=== PATIENT | male | born 1950 | race Caucasian/White ===

== ENCOUNTER → 2018-03-27 14:06 | Outpatient (CLI) | payer MEDICARE, BC, SELFPAY ==
--- NOTE | 2018-03-27 14:09 | DI.RAD.S_ITS ---
PROCEDURE: XR FOREARM RT 2V INDICATIONS: pain of R forearm after fall TECHNIQUE: 2 views of the forearm were acquired. COMPARISON: [facility], CR, HAND MIN 3VW (RT), 06/02/2011, 9:33. FINDINGS: Bones: No fractures or dislocations. No suspicious bony lesions. Soft tissues: No suspicious soft tissue calcifications or masses. IMPRESSION: No fracture or dislocation. The If clinical symptoms persist or clinical suspicion for pathology is high, a repeat examination in 7-10 days is suggested for further evaluation. Dictated by: Teresita Way M.D. on 03/27/2018 at 15:59 Approved by: Teresita Way M.D. on 03/27/2018 at 16:04
== END ==
PROVIDERS: PCP Family Medicine; Visit Provider Family Medicine
DX: M79.631 Pain in right forearm (principal)
CPT/HCPCS: 73090

== ENCOUNTER 2018-04-17 19:46 | Emergency (ER) | payer MEDICARE, BC, SELFPAY ==
[2018-04-17 20:09] VITALS: BP 157/96; PULSE 81; RESP 18; TEMP 36.4; O2SAT 95; BMI 31.9
--- NOTE | 2018-04-17 20:52 | ED.RECABL ---
HPI - Recheck/Abnormal Lab/Rx <Lauren Stewart PA-C - Last Filed: 04/17/18 23:23> General Chief Complaint: Recheck/Abnormal Lab/Rx Stated Complaint: needs refills on medication Time Seen by Provider: 04/17/18 21:18 Source: patient Mode of arrival: ambulatory Limitations: no limitations History of Present Illness HPI narrative: This 68-year-old male comes in requesting medication refills. He used to live here, moved back in December and was hoping to reestablish with his previous PCP but found out after about 2 months he is not taking more patients. He is waiting for records to be transferred from [place] so he can get in with another clinic. He states he is almost out of his pravastatin and out of his Ativan. Those are the only 2 medications that he takes regularly. He takes Ativan at bedtime only because he gets claustrophobic with his CPAP machine. He has tried sleeping without the CPAP but states he does not get good sleep without it. He states he is feeling okay and does not have any new complaints, just would like medication while waiting to get in with a PCP locally Related Data Home Medications Medication Instructions Recorded Confirmed fluticasone 50 mcg/actuation nasal 1 spray NASAL DAILY 03/27/18 03/27/18 spray,suspension lorazepam 1 mg tablet 1 mg PO BEDTIME PRN 03/27/18 03/27/18 pravastatin 20 mg tablet 20 mg PO DAILY 03/27/18 03/27/18 vardenafil 20 mg tablet 20 mg PO DAILY PRN 03/27/18 03/27/18 Previous Rx's Medication Instructions Recorded lorazepam 1 mg PO BEDTIME #14 tab 04/17/18 pravastatin 20 mg PO DAILY #30 tab 04/17/18 Allergies Allergy/AdvReac Type Severity Reaction Status Date / Time No Known Drug Allergies Allergy Verified 04/17/18 20:08 Review of Systems <Lauren Stewart PA-C - Last Filed: 04/17/18 23:23> Review of Systems All systems reviewed & are unremarkable except as noted in HPI and below Exam <Lauren Stewart PA-C - Last Filed: 04/17/18 23:23> Narrative Exam Narrative: GENERAL APPEARANCE: Patient sitting comfortably, in no distress. LUNGS: Clear to auscultation bilaterally. HEART: Rate and rhythm regular without murmur, normal S1 and S2, no S3 or S4. Initial Vital Signs Initial Vital Signs: Vital Signs Temperature 97.6 F 04/17/18 20:09 Pulse Rate 81 04/17/18 20:09 Respiratory Rate 18 04/17/18 20:09 Blood Pressure 157/96 H 04/17/18 20:09 Pulse Oximetry 95 04/17/18 20:09 <Robin Best DO - Last Filed: 04/18/18 03:45> Initial Vital Signs Initial Vital Signs: Vital Signs Temperature 97.6 F 04/17/18 20:09 Pulse Rate 81 04/17/18 20:09 Respiratory Rate 18 04/17/18 20:09 Blood Pressure 157/96 H 04/17/18 20:09 Pulse Oximetry 95 04/17/18 20:09 Course <Lauren Stewart PA-C - Last Filed: 04/17/18 23:23> Additional Information: Patient is not having any acute symptoms. He is a reasonable historian, just having difficulty getting established with a local PCP for medication refills. I spoke with office mail clerk at [facility] this evening and he will call there tomorrow regarding scheduling and can do televisit as well for medication refills if needed. Given rxs to last until he is able to schedule. Vital Signs - 8 hr 04/17/18 20:09 04/17/18 21:46 Temperature 97.6 F Pulse Rate 81 81 Respiratory Rate 18 17 Blood Pressure 157/96 H Blood Pressure [Left Arm] 157/94 H Pulse Oximetry 95 99 <Robin Best DO - Last Filed: 04/18/18 03:45> Vital Signs - 8 hr 04/17/18 20:09 04/17/18 21:46 Temperature 97.6 F Pulse Rate 81 81 Respiratory Rate 18 17 Blood Pressure 157/96 H Blood Pressure [Left Arm] 157/94 H Pulse Oximetry 95 99 Discharge Plan Departure Patient Disposition: Home Clinical Impression: Encounter for medication refill Discharge Date/Time: 04/17/18 21:49 Interventions: ED Discharge Assessment Last Done: 04/17/18 21:48 Activity Restrictions/Additional Instructions: Please feel free to return to the ED or urgent care if you have any problems while you are waiting to see your new PCP. Please call the [facility] here in town, Dr. Taj Jaime, tomorrow, and let them know that I suggested you call due to the long wait to get into a primary care provider and needing medication refills. They have same-day and telemedicine visits and I think they will be able to see you sooner. Prescriptions: New pravastatin 20 mg tablet 20 mg PO DAILY Qty: 30 RF: 0 lorazepam 1 mg tablet 1 mg PO BEDTIME Qty: 14 RF: 0 No Action pravastatin 20 mg tablet 20 mg PO DAILY RF: 0 lorazepam 1 mg tablet 1 mg PO BEDTIME PRNRF: 0 fluticasone 50 mcg/actuation spray,suspension 1 spray NASAL DAILY RF: 0 vardenafil [Levitra] 20 mg tablet 20 mg PO DAILY PRNRF: 0 Referrals: Taj Jaime MD [Physician] - <Robin Best DO - Last Filed: 04/18/18 03:45> [facility] I was immediately available in the department for consultation. Documentation has been reviewed. I agree with assessment and plan.
--- NOTE | 2018-04-17 21:29 | ED_ITS ---
HPI - Recheck/Abnormal Lab/Rx <Lauren Stewart PA-C - Last Filed: 04/17/18 23:23> General Chief Complaint: Recheck/Abnormal Lab/Rx Stated Complaint: needs refills on medication Time Seen by Provider: 04/17/18 21:18 Source: patient Mode of arrival: ambulatory Limitations: no limitations History of Present Illness HPI narrative: This 68-year-old male comes in requesting medication refills. He used to live here, moved back in December and was hoping to reestablish with his previous PCP but found out after about 2 months he is not taking more patients. He is waiting for records to be transferred from [place] so he can get in with another clinic. He states he is almost out of his pravastatin and out of his Ativan. Those are the only 2 medications that he takes regularly. He takes Ativan at bedtime only because he gets claustrophobic with his CPAP machine. He has tried sleeping without the CPAP but states he does not get good sleep without it. He states he is feeling okay and does not have any new complaints, just would like medication while waiting to get in with a PCP locally Related Data Home Medications Medication Instructions Recorded Confirmed fluticasone 50 mcg/actuation nasal 1 spray NASAL DAILY 03/27/18 03/27/18 spray,suspension lorazepam 1 mg tablet 1 mg PO BEDTIME PRN 03/27/18 03/27/18 pravastatin 20 mg tablet 20 mg PO DAILY 03/27/18 03/27/18 vardenafil 20 mg tablet 20 mg PO DAILY PRN 03/27/18 03/27/18 Previous Rx's Medication Instructions Recorded lorazepam 1 mg PO BEDTIME #14 tab 04/17/18 pravastatin 20 mg PO DAILY #30 tab 04/17/18 Allergies Allergy/AdvReac Type Severity Reaction Status Date / Time No Known Drug Allergies Allergy Verified 04/17/18 20:08 Review of Systems <Lauren Stewart PA-C - Last Filed: 04/17/18 23:23> Review of Systems All systems reviewed & are unremarkable except as noted in HPI and below Exam <Lauren Stewart PA-C - Last Filed: 04/17/18 23:23> Narrative Exam Narrative: GENERAL APPEARANCE: Patient sitting comfortably, in no distress. LUNGS: Clear to auscultation bilaterally. HEART: Rate and rhythm regular without murmur, normal S1 and S2, no S3 or S4. Initial Vital Signs Initial Vital Signs: Vital Signs Temperature 97.6 F 04/17/18 20:09 Pulse Rate 81 04/17/18 20:09 Respiratory Rate 18 04/17/18 20:09 Blood Pressure 157/96 H 04/17/18 20:09 Pulse Oximetry 95 04/17/18 20:09 <Robin Best DO - Last Filed: 04/18/18 03:45> Initial Vital Signs Initial Vital Signs: Vital Signs Temperature 97.6 F 04/17/18 20:09 Pulse Rate 81 04/17/18 20:09 Respiratory Rate 18 04/17/18 20:09 Blood Pressure 157/96 H 04/17/18 20:09 Pulse Oximetry 95 04/17/18 20:09 Course <Lauren Stewart PA-C - Last Filed: 04/17/18 23:23> Additional Information: Patient is not having any acute symptoms. He is a reasonable historian, just having difficulty getting established with a local PCP for medication refills. I spoke with financial aid officer at [facility] this evening and he will call there tomorrow regarding scheduling and can do televisit as well for medication refills if needed. Given rxs to last until he is able to schedule. Vital Signs - 8 hr 04/17/18 20:09 04/17/18 21:46 Temperature 97.6 F Pulse Rate 81 81 Respiratory Rate 18 17 Blood Pressure 157/96 H Blood Pressure [Left Arm] 157/94 H Pulse Oximetry 95 99 <Robin Best DO - Last Filed: 04/18/18 03:45> Vital Signs - 8 hr 04/17/18 20:09 04/17/18 21:46 Temperature 97.6 F Pulse Rate 81 81 Respiratory Rate 18 17 Blood Pressure 157/96 H Blood Pressure [Left Arm] 157/94 H Pulse Oximetry 95 99 Discharge Plan Departure Patient Disposition: Home Clinical Impression: Encounter for medication refill Discharge Date/Time: 04/17/18 21:49 Interventions: ED Discharge Assessment Last Done: 04/17/18 21:48 Activity Restrictions/Additional Instructions: Please feel free to return to the ED or urgent care if you have any problems while you are waiting to see your new PCP. Please call the [facility] here in town, Dr. Taj Jaime, tomorrow, and let them know that I suggested you call due to the long wait to get into a primary care provider and needing medication refills. They have same-day and telemedicine visits and I think they will be able to see you sooner. Prescriptions: New pravastatin 20 mg tablet 20 mg PO DAILY Qty: 30 RF: 0 lorazepam 1 mg tablet 1 mg PO BEDTIME Qty: 14 RF: 0 No Action pravastatin 20 mg tablet 20 mg PO DAILY RF: 0 lorazepam 1 mg tablet 1 mg PO BEDTIME PRNRF: 0 fluticasone 50 mcg/actuation spray,suspension 1 spray NASAL DAILY RF: 0 vardenafil [Levitra] 20 mg tablet 20 mg PO DAILY PRNRF: 0 Referrals: Taj Jaime MD [Physician] - <Robin Best DO - Last Filed: 04/18/18 03:45> [facility] ED [facility]: I was immediately available in the department for consultation. Documentation has been reviewed. I agree with assessment and plan.
[2018-04-17 21:46] VITALS: BP 157/94; PULSE 81; RESP 17; O2SAT 99
== END 2018-04-17 21:49 | disposition home or self-care (01) ==
PROVIDERS: Emergency Provider Internal Medicine; PCP Family Medicine
DX: Z76.0 Encounter for issue of repeat prescription (principal)
CPT/HCPCS: 99281; 99282

== ENCOUNTER 2018-07-24 23:14 | Emergency (ER) | payer MEDICARE, BC, SELFPAY ==
[2018-07-24 23:20] VITALS: BP 178/92; PULSE 78; RESP 15; TEMP 36.7; O2SAT 99; BMI 32.6
--- NOTE | 2018-07-24 23:24 | DI.RAD.S_ITS ---
PROCEDURE: XR CHEST 1V INDICATIONS: chest pain TECHNIQUE: One view of the chest was acquired. COMPARISON: None. FINDINGS: Surgical changes and devices: None. Lungs and pleura: Lungs are clear. No pleural effusions or pneumothorax. Mediastinum: Mediastinal contours appear normal. Heart size is normal. There is a large hiatal hernia. Bones and chest wall: No suspicious bony lesions. Overlying soft tissues appear unremarkable. IMPRESSION: 1. A large hiatal hernia. 2. No acute cardiac pulmonary process. Dictated by: Teresita Way M.D. on 07/25/2018 at 8:29 Approved by: Teresita Way M.D. on 07/25/2018 at 8:30
--- NOTE | 2018-07-24 23:24 | ED.CHESTPAIN ---
HPI - Chest Pain General Chief Complaint: Chest Pain Stated Complaint: right side chest pain Time Seen by Provider: 07/24/18 23:22 Source: patient and family Mode of arrival: ambulatory Limitations: no limitations History of Present Illness HPI narrative: 68M former smoker with history of hyperlipidemia presents with and chief complaint of R chest pain which started at rest earlier today at about noon. He states it actually started in his shoulder and then radiated to his chest. Sometimes he can worsen the pain with motion neck or arm, at other times it seems to have a mind of its own. He denies associated symptoms such as SOB, N/V/D, fever, chills, or diaphoresis. He denies any history of the same. He denies injury or overuse. He had a stress test a few years ago due to palpitations while living in [place], [place] Related Data Home Medications Medication Instructions Recorded Confirmed fluticasone propionate 50 1 spray NASAL DAILY 03/27/18 03/27/18 mcg/actuation nasal spray,suspension lorazepam 1 mg tablet 1 mg PO BEDTIME PRN 03/27/18 03/27/18 pravastatin 20 mg tablet 20 mg PO DAILY 03/27/18 03/27/18 vardenafil 20 mg tablet 20 mg PO DAILY PRN 03/27/18 03/27/18 Previous Rx's Medication Instructions Recorded lorazepam 1 mg PO BEDTIME #14 tab 04/17/18 pravastatin 20 mg PO DAILY #30 tab 04/17/18 Allergies Allergy/AdvReac Type Severity Reaction Status Date / Time No Known Drug Allergies Allergy Verified 07/24/18 23:20 Review of Systems Constitutional Denies chills, Denies fever(s), Denies lethargy and Denies weakness Eyes Denies change in vision, Denies eye discharge, Denies irritation and Denies loss of vision ENT Ears, Nose, Mouth, and Throat: Denies change in voice, Denies neck pain and Denies sore throat Cardiovascular Reports chest pain, Denies irregular heart rhythm, Denies lightheadedness, Denies palpitations, Denies dyspnea, Denies dyspnea on exertion and Denies orthopnea Respiratory Denies cough, Denies dyspnea, Denies dyspnea on exertion and Denies wheezing Gastrointestinal Gastrointestinal: Denies abdominal pain, Denies change in bowel habits, Denies diarrhea, Denies nausea and Denies vomiting Genitourinary Denies hematuria, Denies flank pain, Denies urinary incontinence and Denies urinary urgency Musculoskeletal Reports limited range of motion and Denies neck pain Integumentary/Breasts Denies pruritus, Denies erythema, Denies rash and Denies wounds Neurologic Denies confusion, Denies loss of vision and Denies weakness Psychiatric Denies anxiety, Denies confusion, Denies depression, Denies homicidal ideation and Denies suicidal ideation Endocrine Denies palpitations Hematologic/Lymphatic Denies easy bruising Allergic/Immunologic Denies wheezing [facility] Medical History Chronic hepatitis (Chronic) Elevated glucose (Chronic) GERD (gastroesophageal reflux disease) (Chronic) History of migraine (Chronic) Hyperlipidemia (Chronic) LES (obstructive sleep apnea) (Chronic) Sciatica (Chronic) Social History Smoking Status: Never smoker Social History Smoking Status: Never smoker Exam Narrative Exam Narrative: GENERAL: 68-year-old male is resting, appears to be in a bit of distress, particularly when tilting his head to the right or shrugging his shoulders HEAD: Atraumatic. Normocephalic. No temporal or scalp tenderness. EYES: Pupils equal round and reactive. Extraocular motions intact. No scleral icterus. No injection or drainage. ENT: Nose without bleeding, purulent drainage or septal hematoma. Throat without erythema, tonsillar hypertrophy or exudate. Uvula midline. Airway patent. NECK: Trachea midline. No JVD or lymphadenopathy. Supple, nontender, no meningeal signs. CARDIOVASCULAR: Regular rate and rhythm without murmurs, gallops, or rubs. RESPIRATORY: Clear to auscultation. Breath sounds equal bilaterally. No wheezes, rales, or rhonchi. GASTROINTESTINAL: Abdomen soft, non-tender, nondistended. No hepato-splenomegaly, or palpable masses. No guarding. EXTREMITIES: No clubbing, cyanosis, or edema. No joint tenderness, effusion, or edema noted. BACK: Nontender without deformity or crepitance. No flank tenderness. NEURO: AOx3. SKIN: No rash or erythema. Initial Vital Signs Initial Vital Signs: Vital Signs Temperature 98.1 F 07/24/18 23:20 Pulse Rate 78 07/24/18 23:20 Respiratory Rate 15 07/24/18 23:20 Blood Pressure 178/92 H 07/24/18 23:20 Pulse Oximetry 99 07/24/18 23:20 Course Orders Ordered: ED Orders 07/24/18 23:24 XR chest 1V Stat EKG-12 Lead Stat 07/24/18 23:33 Complete Blood Count AUTO DIFF Stat Comprehensive Metabolic Panel Stat Lipase Stat Troponin & CK Cardiac Panel Stat 07/25/18 00:31 CT angio chest PE protocol Stat Sodium Chloride (Normal Saline 0.9%) 1,000 mls @ 150 mls/hr IV CONT OZZIE Last Infusion: 07/25/18 02:05 Dose: 0 mls/hr Admin: 07/25/18 00:53 Dose: 1,000 mls/hr Discontinued Medications Aspirin (Aspirin Chew) 324 mg PO NOW ONE Stop: 07/24/18 23:25 Last Admin: 07/25/18 00:30 Dose: Not Given Ketorolac Tromethamine (Toradol) 15 mg IV NOW ONE Stop: 07/25/18 02:19 Last Admin: 07/25/18 02:22 Dose: 15 mg Vital Signs - 8 hr 07/24/18 23:20 07/25/18 00:53 Temperature 98.1 F Pulse Rate 78 88 Respiratory Rate 15 16 Blood Pressure 178/92 H Blood Pressure [Left Arm] 153/94 H Pulse Oximetry 99 100 MDM - Chest Pain Lab Data Attestation: I reviewed the patient's lab results. Result diagrams: 07/24/18 23:33 07/24/18 23:33 Lab Results 07/24/18 07/24/18 Range/Units 23:33 23:33 WBC 6.8 (4.5-11.0) X10^3/uL RBC 4.78 (4.5-5.9) X10^6/uL Hgb 15.0 (13.5-17.5) g/dL Hct 44.1 (41-53) % MCV 92.3 (80-100) fL MCH 31.4 (26-34) PG MCHC 34.0 (30-36) % RDW 13.9 (11.6-14.8) % Plt Count 250 (150-400) X10^3/uL Neut % (Auto) 54.5 (50-75) % Lymph % (Auto) 30.3 (25-40) % Coleman % (Auto) 10.7 (3-14) % Eos % (Auto) 3.9 (2-4) % Baso % (Auto) 0.6 (0-2) % Neut # (Auto) 3700 (9823-6105) /uL Lymph # (Auto) 2100 (6385-3829) /uL Coleman # (Auto) 700 (0-900) /uL Eos # (Auto) 300 (0-450) /uL Baso # (Auto) 0 (0-100) /uL Sodium 140 (137-145) mmol/L Potassium 3.9 (3.4-5.1) mmol/L Chloride 106 (98-107) mmol/L Carbon Dioxide 26 (22-32) mmol/L BUN 17 (9-20) mg/dL Creatinine 0.90 (0.66-1.25) mg/dL Estimated GFR > 60.0 (>60) mL/min BUN/Creatinine Ratio 18.9 (6-22) Glucose 122 H (80-110) mg/dL Calcium 9.3 (8.4-10.2) mg/dL Total Bilirubin 0.9 (0.2-1.3) mg/dL AST 33 (17-59) IU/L ALT 55 (21-72) IU/L Alkaline Phosphatase 61 (38-126) U/L Total Creatine Kinase 143 (55-170) U/L CK-MB (CK-2) 1.79 (<2.37) ng/mL CK-MB (CK-2) Rel Index 1.3 L (1.5-5.0) % Troponin I < 0.012 (0.01-0.034) ng/mL Total Protein 7.4 (6.3-8.2) g/dL Albumin 4.6 (3.5-5.0) g/dL Globulin 2.8 (1.7-4.1) g/dL Albumin/Globulin Ratio 1.6 (1.0-2.8) Lipase 49 (23-300) U/L Imaging Data Chest x-ray: Attestation: I personally reviewed and interpreted this imaging study as follows: My impression: No acute process CT scan - chest: Radiologist's impression: With no PE, dissection or aneurysm. Large hiatal hernia ECG Data Attestation: I personally reviewed and interpreted this ECG as follows: Prior ECG tracings: not available for review Interpretation: EKG is normal sinus rhythm rate [80 ] and free of any signs of ischemia or ectopy. No ST segmental elevation or depression. No T wave inversions MDM Narrative Medical decision making narrative: 68-year-old male with hyperlipidemia and borderline diabetes, former smoker presents with right shoulder pain that radiates into his chest. It is made worse with range of motion of the shoulder and tilting his head to the side and on occasion has exacerbations without any precipitation. He denies any significant injury or overuse and requires cardiac evaluation. The radiation of his pain and normal EKG would suggest further evaluation with angiography of the test is warranted to rule out pulmonary embolism or dissection. Patient has normal cardiac enzymes and lack of ominous findings on EKG or imaging. He has a local doctor and intends to follow up. He has been given return precautions of and understands his diagnosis and need for follow-up as evidenced by his ability to verbalize these instructions Discharge Plan Departure Patient Disposition: Home Clinical Impression: Atypical chest pain Instructions: DI for Atypical Chest Pain Activity Restrictions/Additional Instructions: *You have been diagnosed with [ atypical chest pain. cardiac ischemia, pulmonary embolism and other diagnoses considered and thought unlikely ] *What to do: * continue to take medications as directed *Follow up with your primary care provider in 2-3 days, call for an appointment. Let them know you were seen in the Emergency Department and that we ask that you be seen in follow up *Return to ER if you should have any new, worsening or concerning symptoms Prescriptions: No Action pravastatin 20 mg tablet 20 mg PO DAILY RF: 0 lorazepam 1 mg tablet 1 mg PO BEDTIME PRNRF: 0 fluticasone propionate 50 mcg/actuation spray,suspension 1 spray NASAL DAILY RF: 0 vardenafil [Levitra] 20 mg tablet 20 mg PO DAILY PRNRF: 0 pravastatin 20 mg tablet 20 mg PO DAILY Qty: 30 RF: 0 lorazepam 1 mg tablet 1 mg PO BEDTIME Qty: 14 RF: 0 Referrals: Taj Jaime MD [Physician] -
[2018-07-24 23:45] LABS: Add Manual Diff / Slide Review NO; Basophils Absolute Auto 0 /uL (0-100); Basophils Percent Auto 0.6 % (0-2); Eosinophils Absolute Auto 300 /uL (0-450); Eosinophils Percent Auto 3.9 % (2-4); Hematocrit 44.1 % (41-53); Lymphocytes Absolute Auto 2100 /uL (1100-4500); Lymphocytes Percent Auto 30.3 % (25-40); Mean Corpuscular Hemoglobin 31.4 PG (26-34); Mean Corpuscular Volume 92.3 fL (80-100); Monocytes Absolute Auto 700 /uL (0-900); Monocytes Percent Auto 10.7 % (3-14); Neutrophils Absolute Auto 3700 /uL (1500-7000); Neutrophils Percent Auto 54.5 % (50-75); Platelet Count 250 X10^3/uL (150-400); Red Blood Cell Count 4.78 X10^6/uL (4.5-5.9); Red Cell Distribution Width 13.9 % (11.6-14.8); White Blood Cell Count 6.8 X10^3/uL (4.5-11.0)
[2018-07-24 23:50] LABS: Alanine Aminotransferase 55 IU/L (21-72); Albumin 4.6 g/dL (3.5-5.0); Albumin Globulin Ratio 1.6 (1.0-2.8); Alkaline Phosphatase 61 U/L (38-126); Aspartate Aminotransferase 33 IU/L (17-59); BUN Creatinine Ratio 18.9 (6-22); Bilirubin Total 0.9 mg/dL (0.2-1.3); Blood Urea Nitrogen 17 mg/dL (9-20); Calcium 9.3 mg/dL (8.4-10.2); Carbon Dioxide 26 mmol/L (22-32); Chloride 106 mmol/L (98-107); Creatine Kinase 143 U/L (55-170); Estimated Glomerular Filt Rate > 60.0 mL/min (>60); Globulin 2.8 g/dL (1.7-4.1); Glucose 122 mg/dL (80-110); HEMOLYSIS < 15 (0-50); Lipase 49 U/L (23-300); Potassium 3.9 mmol/L (3.4-5.1); Sodium 140 mmol/L (137-145); Total Protein 7.4 g/dL (6.3-8.2)
[2018-07-25 00:02] LABS: Troponin I < 0.012 ng/mL (0.01-0.034)
[2018-07-25 00:06] LABS: CKMB % Relative Index 1.3 % (1.5-5.0); Creatine Kinase MB 1.79 ng/mL (<2.37)
--- NOTE | 2018-07-25 00:31 | DI.CT.S_ITS ---
PROCEDURE: CT ANGIO CHEST PE PROTOCOL INDICATIONS: chest pain, radiation to back TECHNIQUE: After the administration of intravenous contrast, 2 mm thick sections acquired from the pulmonary apices to the posterior costophrenic angles. 3-dimensional maximum intensity projection (MIP) coronal and sagittal reformats were then acquired through the thorax. For radiation dose reduction, the following was used: automated exposure control, adjustment of mA and/or kV according to patient size. COMPARISON: None. FINDINGS: Image quality: Excellent. Pulmonary arteries: Pulmonary arteries are normal in size, and demonstrate no intraluminal filling defects to suggest central pulmonary embolism. Lungs and pleura: Lungs are clear. No pleural effusions or pneumothorax. Central and peripheral airways are patent. Mediastinum: Heart size is normal, without pericardial effusion. Atherosclerotic calcifications are noted in the aorta and the coronary vasculature. No mediastinal or hilar adenopathy. Thoracic aorta is normal in caliber and enhancement. Large hiatal hernia is noted. Bones and chest wall: No suspicious bony lesions. Ribs and thoracic spine appear intact throughout. Spine degenerative disc disease and facet arthropathy. Thyroid gland is within normal limits. No axillary or supraclavicular adenopathy. Abdomen: Small hypoattenuating lesions noted in the right lobe of the liver which cannot be definitively characterized based on protocol optimized for pulmonary embolus. Visualized upper abdominal solid organs appear normal in the early arterial phase of enhancement. IMPRESSION: 1. No pulmonary embolus. 2. Atherosclerosis including dense atherosclerotic calcifications in the coronary vasculature. 3. Large hiatal hernia. 4. Indeterminate hypoattenuating hepatic lesions. Dictated by: Hayde Etienne MD, PhD on 07/25/2018 at 7:31 Approved by: Hayde Etienne MD, PhD on 07/25/2018 at 7:35
--- NOTE | 2018-07-25 00:31 | PC.NURSE ---
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
[2018-07-25 00:53] VITALS: BP 153/94; PULSE 88; RESP 16; O2SAT 100
[2018-07-25] MEDS: SODIUM CHLORIDE 0.9% 1,000 ML 1000 ML IV (00:53)
[2018-07-25] MEDS: KETOROLAC 60 MG/2 ML VIAL 15 MG IV (02:22)
[2018-07-25 02:31] VITALS: BP 136/95; PULSE 80; RESP 15; O2SAT 98
== END 2018-07-25 02:35 | disposition home or self-care (01) ==
PROVIDERS: Emergency Provider Emergency Medicine; PCP Family Medicine
DX: R07.89 Other chest pain (principal); M25.511 Pain in right shoulder
CPT/HCPCS: 36591; 71045; 71275; 80053; 82550; 82553; 83690; 84484; 85025; 93005; 96361; 96374; 99283; 99285; J1885; Q9967